=== PATIENT | male | born 1965 | race Caucasian/White ===

== ENCOUNTER 2021-03-27 20:55 | Emergency (ER) | payer OTHER ==
[~2021-03-27] VITALS: Ht 182.9 cm; Wt 81.6 kg
[2021-03-27 21:04] VITALS: BP 118/73
--- NOTE | 2021-03-27 21:04 | NUR ---
TO BED VIA W/C
--- NOTE | 2021-03-27 21:08 | NUR ---
PT. BROUGHT IN BY FRIEND TO THE ED WITH C/O OF HIGH BLOOD SUGAR. PT. FRIEND STATES THAT HE HAS BEEN INCOHERENT AND SUSPECTS THAT HE HAS NOT TAKEN HIS INSULIN THIS EVENING. UPON ASSESSMENT, PT. IS HARD TO WAKE WITH VERBAL CUES AND TOUCH. DENIES N/V/D; SKIN IS PINK/WARM/DRY; HR EVEN AND REGULAR; PT. FRIEND DENIES ANY FEVER, CP, SOB, OR COUGH AT THIS TIME; VSS; PATIENT POSITIONED FOR COMFORT; HOB ELEVATED; BEDRAILS UP X2; BED DOWN. ER MD MADE AWARE OF PT STATUS.
--- NOTE | 2021-03-27 21:38 | NUR ---
LABS DRAWN AND HANDED TO ARABELLA FROM LAB
[2021-03-27] MEDS ORDERED: NALOXONE 0.4 MG/ML VIAL IVP ONE (21:50)
[2021-03-27] MEDS ORDERED: ONDANSETRON 4 MG/2 ML VIAL IVP ONE (21:50)
[2021-03-27] MEDS ORDERED: NACL 0.9% 1,000 ML IV ONE ×2 (21:55→23:25)
--- NOTE | 2021-03-27 22:04 | NUR ---
PT TAKEN TO CT
[2021-03-27 22:21] LABS: BASOPHILS % (AUTO) 0.4 % (0.0-2.0); EOSINOPHILS # (AUTO) 0.2 K/uL (0-0.4); EOSINOPHILS % (AUTO) 1.8 % (0.0-4.0); HEMATOCRIT 45.8 % (36-52); LYMPHOCYTES # (AUTO) 4.5 K/uL (2.0-11.5); LYMPHOCYTES % (AUTO) 40.5 % (20.5-51.1); MEAN CORPUSCULAR HEMOGLOBIN 30 pg (27-31); MEAN CORPUSCULAR HGB CONC 35 g/dL (33-37); MEAN CORPUSCULAR VOLUME 86.4 fL (80-94); MONOCYTES # (AUTO) 0.8 K/uL (0.8-1.0); MONOCYTES % (AUTO) 7.3 % (1.7-9.3); NEUTROPHILS # (AUTO) 5.6 K/uL (1.8-7.7); PLATELET COUNT (AUTO) 251 K/uL (140-450); RED CELL DISTRIBUTION WIDTH 13.1 % (11.6-13.7); WHITE BLOOD COUNT (AUTO) 11.1 K/uL (4.8-10.8)
[2021-03-27 22:55] LABS: APPEARANCE,URINE CLEAR (CLEAR); BILIRUBIN,URINE NEGATIVE (NEGATIVE); BLOOD, URINE NEGATIVE (NEGATIVE); COLOR,URINE YELLOW (YELLOW); LEUKOCYTE ESTERASE ,URINE NEGATIVE (NEGATIVE); NITRITE, URINE NEGATIVE (NEGATIVE); UGLUCOSE 2+ (NEGATIVE)
[2021-03-27 22:58] LABS: ALBUMIN 3.9 g/dL (3.4-5.0); CARBON DIOXIDE 27.5 mmol/L (21-32); POTASSIUM 3.5 mmol/L (3.5-5.1); TOTAL BILIRUBIN 0.6 mg/dL (0.0-1.0)
[2021-03-27 23:00] LABS: ACETAMINOPHEN < 0.5 ug/ml (10-30); SALICYLATE < 2.8 mg/dL (2.8-20.0)
[2021-03-27 23:13] LABS: BARBITURATE, URINE NEGATIVE ng/ml (NEG <=200); BENZODIAZEPINE, URINE NEGATIVE ng/mL (NEG <=200); CANNABINOID, URINE NEGATIVE ng/mL (NEG <=50); COCAINE, URINE POSITIVE ng/mL (NEG <=300); OPIATE, URINE NEGATIVE ng/mL (NEG <=2000); PHENCYCLIDINE SCREEN,URINE NEGATIVE ng/mL (NEG <=25)
[2021-03-27 23:15] LABS: RBC,URINE 0-5 /HPF (0-5); WBC,URINE 0-5 /HPF (0-5)
[2021-03-27] MEDS ORDERED: NALO4SPR NS (23:21)
[2021-03-28 01:55] VITALS: BP 136/87
--- NOTE | 2021-03-28 02:00 | NUR ---
PT. RESTING WITH EYES CLOSED, AUDIBLE SNORING SOUNDS CAN BE HEARD. VOICES NO COMPLAINTS
--- NOTE | 2021-03-28 06:30 | NUR ---
IV removed, catheter intact and site benign. Applied folded 4x4 gauze and tape to stop bleeding.
--- NOTE | 2021-03-28 06:35 | NUR ---
Patient discharged with v/s stable. Written and verbal after care instructions given and explained. Patient verbalized understanding. Ambulatory with steady gait. All questions addressed prior to discharge. Advised to follow up with PMD.
== END 2021-03-28 06:35 | disposition home or self-care (01) ==
LOC: MED 20:55
DX: G93.40 Encephalopathy, unspecified (principal); F15.90 Other stimulant use, unspecified, uncomplicated; F14.90 Cocaine use, unspecified, uncomplicated; D72.829 Elevated white blood cell count, unspecified; E11.65 Type 2 diabetes mellitus with hyperglycemia
CPT/HCPCS: 36415; 70450; 80053; 80305; 81001; 82140; 83605; 83690; 85025; 87040; 87086; 93005; 96361; 96374; 96375; 99284; G0480; J2310; J2405